=== PATIENT | male | born 1950 | race Caucasian/White ===

== ENCOUNTER → 2017-07-21 | Outpatient (CLI) | payer OTHER ==
[~2017-07-21] MED LIST: ASPI-555 PO; CRAN1TAB2 PO; FOLI1TAB15 PO; GABA-531 PO; GADOBENATE DIMEGLUMINE 20 ML IV ONE; LEVO75TA10 PO; TRAM50TA4 PO
== END | disposition home or self-care (01) ==
LOC: RAH 10:18
PROVIDERS: ATTEND Neurological Surgery
DX: M51.16 Intervertebral disc disorders with radiculopathy, lumbar region (principal); M48.061 Spinal stenosis, lumbar region without neurogenic claudication; M41.86 Other forms of scoliosis, lumbar region; M25.78 Osteophyte, vertebrae
CPT/HCPCS: 72158; A9577

== ENCOUNTER 2017-08-05 14:30 | Observation (INO) | payer OTHER ==
[~2017-08-05] VITALS: Ht 177.8 cm; Wt 135.4 kg
[2017-08-05 09:52] VITALS: BP 115/75
[2017-08-05 10:04] LABS: BASOPHILS % (AUTO) 0.7 % (0.0-5.0); EOSINOPHILS % (AUTO) 4.1 % (0.0-8.0); HEMATOCRIT 45.5 % (42-54); LYMPHOCYTES % (AUTO) 32.5 % (21.0-51.0); MEAN CORPUSCULAR HEMOGLOBIN 32.3 pg (27.0-33.0); MEAN CORPUSCULAR HGB CONC 34.1 g/dL (32.0-36.0); MEAN CORPUSCULAR VOLUME 94.7 fL (79-99); MONOCYTES % (AUTO) 14.3 % (3.0-13.0); NEUTROPHILS % (AUTO) 48.4 % (40.0-77.0); NUCLEATED RED BLOOD CELLS 0.1 % (0.0-0.19); PLATELET COUNT (AUTO) 176 K/uL (130-400); RED CELL DISTRIBUTION WIDTH 14.3 % (11.0-15.5); WHITE BLOOD COUNT (AUTO) 4.1 K/uL (4.8-10.8)
[2017-08-05 10:08] LABS: CREATININE 1.2 mg/dL (0.5-1.5); POTASSIUM 4.4 mmol/L (3.5-5.1)
[~2017-08-05 14:30] MED LIST changes: +CEFAZOLIN SODIUM 1 GM VIAL IVP SCH; -GADOBENATE DIMEGLUMINE 20 ML IV ONE
[2017-08-09] VITALS (22 sets, daily range): BP systolic 103–128; BP diastolic 61–79
[2017-08-09] MEDS ORDERED: LACTATED RINGERS 1000ML 1,000 ML IV ONE (06:39)
[2017-08-09] MEDS ORDERED: EPINEPHRINE 1 MG/ML AMPULE ONE (06:49)
[2017-08-09] MEDS ORDERED: BUPIVACAINE/PF 0.25% 30ML VIAL IJ ONE (06:49)
[2017-08-09] MEDS ORDERED: BACITRACIN 50,000 UNIT VIAL ONE (06:50)
[2017-08-09] MEDS ORDERED: THROMBIN-JMI 20000 UNIT KIT TP ONE (06:50)
[2017-08-09] MEDS ORDERED: DURAMORPH PF1 MG/ML 10ML AMP IV ONE (06:50)
[2017-08-09] MEDS ORDERED: SODIUM CHLORIDE 0.9% 10 ML VIAL ONE (06:52)
[2017-08-09] MEDS: CEFAZOLIN SODIUM 1 GM VIAL ONE ×2 (06:55→07:30)
[2017-08-09] MEDS ORDERED: MIDAZOLAM HCL 1 MG/ML 2ML VIAL ONE (07:36)
[2017-08-09] MEDS ORDERED: PROPOFOL 10 MG/ML 20ML VIAL IV ONE ×2 (07:36→10:28)
[2017-08-09] MEDS ORDERED: FENTANYL CITRATE PF 50 MCG/1 ML 5ML AMP IV ONE (07:37)
[2017-08-09] MEDS ORDERED: EPHEDRINE SULFATE 50 MG/ML AMPULE ONE (07:48)
[2017-08-09] MEDS ORDERED: DEXAMETHASONE SOD PHOSPHATE 10MG/ML 1ML VIAL ONE (08:08)
[2017-08-09] MEDS ORDERED: ROCURONIUM BROMIDE 10MG/1ML 5ML VL ONE (08:08)
[2017-08-09] MEDS ORDERED: LIDOCAINE PF 2% 5ML ABBOJECT ONE (08:08)
[2017-08-09] MEDS ORDERED: GLYCOPYRROLATE 0.2 MG/ML 5 ML VIAL ONE (08:08)
[2017-08-09] MEDS ORDERED: NEOSTIGMINE 5MG/5ML SYR IV ONE (08:08)
[2017-08-09] MEDS ORDERED: ONDANSETRON HCL 4 MG/2 ML VIAL ONE (08:08)
[2017-08-09] MEDS ORDERED: FENTANYL CITRATE PF 50 MCG/1 ML 2ML VIAL ONE (09:59)
[2017-08-09] MEDS ORDERED: HYDROCODONE/ACETAMINOPHEN 5/325 MG TAB PO PRN (11:15)
[2017-08-09] MEDS ORDERED: MORPHINE SULFATE 2 MG/ML 1ML SYG IVP PRN (11:15)
[2017-08-09] MEDS ORDERED: CEFAZOLIN 2GM / 50 ML 50 ML IV SCH (11:15)
[2017-08-09] MEDS ORDERED: TRAMADOL HCL 50 MG TABLET PO SCH (11:15)
[2017-08-09] MEDS ORDERED: PROMETHAZINE HCL 25 MG/ML 1ML AMPULE IM PRN (11:15)
[2017-08-09] MEDS ORDERED: SODIUM CHLORIDE 0.9% 10 ML VIAL IVP PRN (11:15)
[2017-08-09] MEDS ORDERED: MEPERIDINE-PF 25 MG/ML SYG ONE (11:41)
[2017-08-09] MEDS: DEXAMETHASONE SOD PHOSPHATE 4 MG/ML 1ML VIAL IVP SCH ×2 (14:48→20:16)
[2017-08-09] MEDS ORDERED: CEFAZOLIN SODIUM 1 GM VIAL IVP ONE (15:00)
[2017-08-09] MEDS: LACTATED RINGERS 1000ML 1,000 ML IV SCH ×2 (15:06→23:55)
[2017-08-09] MEDS ORDERED: TRAMADOL HCL 50 MG TABLET PO PRN (17:15)
[2017-08-09] MEDS: GABAPENTIN 300 MG CAPSULE PO SCH (20:16)
[2017-08-10 00:04] VITALS: BP 92/53
[2017-08-10] MEDS: DEXAMETHASONE SOD PHOSPHATE 4 MG/ML 1ML VIAL IVP SCH ×2 (01:32→07:53)
[2017-08-10 04:08] VITALS: BP 100/57
[2017-08-10] MEDS ORDERED: LEVOTHYROXINE 75 MCG TABLET PO SCH (06:30)
[2017-08-10 07:30] VITALS: BP 127/80
[2017-08-10] MEDS: GABAPENTIN 300 MG CAPSULE PO SCH (07:53)
[2017-08-10] MEDS ORDERED: FOLIC ACID 1 MG TABLET PO SCH (09:00)
[2017-08-10] MEDS ORDERED: ASPIRIN 81 MG EC TAB PO SCH (09:00)
== END 2017-08-10 10:10 | disposition home or self-care (01) ==
LOC: EDSTATUS 14:30 → DAHIP 08-09 05:49 → 4AH 08-09 12:35
PROVIDERS: ADMIT Neurological Surgery; ATTEND Neurological Surgery
DX: M48.061 Spinal stenosis, lumbar region without neurogenic claudication (principal); E03.9 Hypothyroidism, unspecified; E66.9 Obesity, unspecified; Z79.899 Other long term (current) drug therapy; Z96.653 Presence of artificial knee joint, bilateral; Z96.643 Presence of artificial hip joint, bilateral
CPT/HCPCS: 36415; 63047; 63048 ×2; 72020; 80048; 85025; 96374; 96375; 96376 ×2; A4218 ×2; A4344; A4510; A4600; A4649; A5113; A6219; G0378 ×29; J0171; J0690 ×3; J1100 ×5; J2001; J2175; J2250; J2274; J2405; J2704 ×2; J2710; J3010 ×2; J3490 ×4; J7120 ×2

== ENCOUNTER → 2023-06-09 | Outpatient (CLI) | payer MEDICARE ==
[~2023-06-09] MED LIST changes: -ASPI-555 PO; +ASPI-556 PO; -CEFAZOLIN SODIUM 1 GM VIAL IVP SCH; -TRAM50TA4 PO
== END | disposition home or self-care (01) ==
LOC: RAH 12:00
PROVIDERS: ATTEND Internal Medicine
DX: M25.571 Pain in right ankle and joints of right foot (principal)
CPT/HCPCS: 73610; 73630